=== PATIENT | male | born 1950 | race Caucasian/White ===

== ENCOUNTER → 2018-08-15 | Outpatient (CLI) | payer MEDICARE ==
--- NOTE | 2018-08-15 13:29 | XR ---
EXAMINATION TYPE: XR ribs LT w pa chest xray DATE OF EXAM: 08/15/2018 COMPARISON: NONE TECHNIQUE: PA view of the chest and 5 views of the left ribs are submitted. HISTORY: Mid left lateral rib pain FINDINGS: Heart size prominent. There is no sizable pneumothorax or consolidation. Severe arthropathy of the sh oulder. Hypertrophic change of the spine. There is a linear lucency through the anterior lateral darrin in of the left sixth rib. IMPRESSION: 1. Correlate for hairline on this is fracture anterolateral left sixth rib
== END ==
LOC: RADXRYALE 12:56
PROVIDERS: ATTEND Family Medicine
DX: R07.82 Intercostal pain (principal)